=== PATIENT | female | born 1990 | race Caucasian/White ===

== ENCOUNTER 2019-11-23 16:46 | Emergency (ER) | payer OTHER, SELFPAY ==
[2019-11-23 16:52] VITALS: BP 114/75; PULSE 89; RESP 16; TEMP 36.7; O2SAT 100
--- NOTE | 2019-11-23 17:09 | ED.EAR ---
HPI - Ear Problem General Chief complaint: Ear Stated complaint: ear pain Source: patient and RN notes reviewed Mode of arrival: ambulatory Limitations: no limitations History of Present Illness HPI Narrative: Patient is a 29-year-old female who presents complaining of right ear pain x2 days. Patient denies fever, sore throat, cough or congestion. Patient reports taking ibuprofen with moderate relief. MD Complaint: ear pain Location: right ear Related Data Home Medications Medication Instructions Recorded Confirmed pseudoephedrine HCl [Sudafed] 30 mg PO Q4-6H PRN 11/23/19 11/23/19 Allergies Allergy/AdvReac Type Severity Reaction Status Date / Time No Known Allergies Allergy Unknown Verified 11/23/19 17:00 Review of Systems Review of Systems: Narrative: CONSTITUTIONAL: Denies fever, chills, or sweats. EYES: Denies visual changes, redness, or discharge. ENT: Denies rhinorrhea, congestion, sore throat, reports right otalgia. CARDIOVASCULAR: Denies chest pain, palpitations, or edema. RESPIRATORY: Denies cough or dyspnea. GASTROINTESTINAL: Denies abdominal pain, nausea, vomiting, or diarrhea. GENITOURINARY: Denies dysuria or hematuria. SKIN: Denies rash or itching. MUSCULOSKELETAL: Denies back pain, joint pain, or myalgia. NEUROLOGIC: Denies headache, numbness, dizziness, or weakness. PSYCHIATRIC: Denies anxiety or depression. [facility] Past Medical History Medical History (Updated 11/23/19 @ 17:19 by RICHARD Diallo) No pertinent past medical history Surgical History Surgical History (Updated 11/23/19 @ 17:13 by RICHARD Diallo) No pertinent past surgical history Social History Social History (Updated 11/23/19 @ 17:14 by RICHARD Diallo) Smoking status: Never smoker Substance use: never Living arrangements: with family Gender identity (if verbalized by the patient): Female Exam Narrative: Exam Narrative: GENERAL: Well-appearing, well-nourished, and in no acute distress. HEAD: Normocephalic, atraumatic. EYES: EOMI. No redness or drainage. Conjunctiva are normal. ENT: Mucous membranes pink and moist. Nares clear. No rhinorrhea. Left TMs normal, right TM injected, cloudy, bulging bilaterally. Throat normal. Uvula midline. NECK: AROM. Supple. No lymphadenopathy. CHEST: No respiratory distress. Clear to auscultation. HEART: Regular rate and rhythm. No murmur appreciated. Normal peripheral pulses. NEURO: No focal deficits. Alert and oriented x3. Gait steady. PSYCH: Normal affect. No signs of depression or anxiety. Course Vital Signs Vital signs: Vital Signs Temperature 36.7 C 11/23/19 16:52 Pulse Rate 89 11/23/19 16:52 Respiratory Rate 16 11/23/19 16:52 Blood Pressure 114/75 11/23/19 16:52 Pulse Oximetry 100 11/23/19 16:52 Temperature 36.7 C 11/23/19 16:52 Pulse Rate 89 11/23/19 16:52 Respiratory Rate 16 11/23/19 16:52 Blood Pressure 114/75 11/23/19 16:52 Pulse Oximetry 100 11/23/19 16:52 Medical Decision Making MDM Narrative Medical decision making narrative: Patient's most likely diagnosis is right otitis media. Discussed plan of care with patient. Patient is stable for discharge with outpatient follow-up care as needed. Differential Diagnosis Differential Diagnosis: Right otitis media Vital Signs Vital Signs: Vital Signs Temperature 36.7 C 11/23/19 16:52 Pulse Rate 89 11/23/19 16:52 Respiratory Rate 16 11/23/19 16:52 Blood Pressure 114/75 11/23/19 16:52 Pulse Oximetry 100 11/23/19 16:52 Temperature 36.7 C 11/23/19 16:52 Pulse Rate 89 11/23/19 16:52 Respiratory Rate 16 11/23/19 16:52 Blood Pressure 114/75 11/23/19 16:52 Pulse Oximetry 100 11/23/19 16:52 Critical Care Time Critical Care Time Critical Care Time: No Discharge Plan Discharge Clinical Impression: Otitis media Patient Disposition: Home, Self-Care Condition: Stable Instructions: Antibiotic Form
== END 2019-11-23 17:22 | disposition home or self-care (01) ==
PROVIDERS: Emergency Provider Nurse Practitioner
DX: H66.91 Otitis media, unspecified, right ear (principal)
CPT/HCPCS: 99213; G0463

== ENCOUNTER 2020-01-04 11:43 | Emergency (ER) | payer OTHER, SELFPAY ==
[2020-01-04 11:50] VITALS: BP 119/72; PULSE 86; RESP 16; TEMP 36.9; O2SAT 99
--- NOTE | 2020-01-04 12:01 | ED.GENADULT ---
HPI - General Adult General Chief complaint: Upper Respiratory Infection Stated complaint: cough/fever/body aches History of Present Illness HPI narrative: Patient is a 29-year-old female presents to urgent care via POV for evaluation of a sore throat that began approximately 3 days ago. Additionally, she reports dry cough, low-grade fever, and myalgias. She reports that her temperatures have been running in the low 100s . Current pain is 5 out of 10 on a pain scale. She reports her pain is intermittent and sharp in nature. Tylenol and cough drops improve throat pain. Nothing worsens throat pain. Pertinent negatives: chills, poor p.o. intake, flu-like symptoms, ear pain/drainage, sinus trouble, headache, nasal congestion, rhinorrhea, lymphadenopathy, dizziness, LOC, inability to swallow, drooling, hoarseness, halitosis, abdominal pain, nausea, vomiting, diarrhea, cyanosis, hemoptysis, wheezing, sob, chest pain, heart murmurs, and heart palpations. Related Data Allergies Allergy/AdvReac Type Severity Reaction Status Date / Time No Known Allergies Allergy Unknown Verified 01/04/20 11:56 Review of Systems Review of Systems: Narrative: GENERAL: Well-appearing, well-nourished, and in no acute distress. HEAD: Normocephalic, atraumatic. No sinus tenderness or facial swelling appreciated. EYES: PERRLA and EOMI. No evidence of erythema, swelling, or drainage. ENT: Bilateral external ears and ear canals normal. Bilateral TMs are normal.No TM perforation. Nares clear, no rhinorrhea or epistaxis. Bilateral turbinates without erythema/ swelling. Mucous membranes moist and pink. Uvula is midline without erythema and swelling. Bilateral tonsils absent. Mild erythema appreciated to posterior pharynx. No evidence of petechial rash, cobblestoning, lesions, ulcers, swelling, exudates, peritonsillar abscess, tenting, or drooling. Breath odor and voice normal. NECK: Supple. No Lymphadenopathy or nuchal rigidity appreciated. CHEST: Bilateral lung rebollar are clear to auscultation. No respiratory distress. No evidence of cough or pleuritic cp upon examination. HEART: Regular rate and rhythm. No murmur, gallop, or rub heard. EXTREMITIES: Normal range of motion. No edema. SKIN: Warm, dry, no rash. NEURO: No focal deficits. Alert and oriented x3. . PMFSH Past Medical History Medical History No pertinent past medical history Surgical History Surgical History No pertinent past surgical history Social History Social History Smoking status: Never smoker Substance use: never Gender identity (if verbalized by the patient): Female Comments I have reviewed and agree with the patient's past medical, surgical, social, and family hx as documented by the RN. There is no relevant family history pertinent to the presenting complaint. Exam Narrative: Exam Narrative: Denies history of COPD, bronchitis, asthma, and pneumonia. Denies current/past tobacco use. Pertinent negatives: fever, sweats, chills, change in appetite, fatigue, skin color changes, headache, nasal congestion/discharge, dizziness, lymphadenopathy, sinus problems, ear pain/drainage, chest pain, heart murmurs, heart palpitations, shortness of breath, wheezing, cyanosis, hemoptysis, hoarseness, orthopnea, pleuritic pain, nausea, vomiting, diarrhea, and myalgias. GENERAL: Well-appearing, well-nourished, and in no acute distress. HEAD: Normocephalic, atraumatic. No sinus tenderness or facial swelling appreciated. EYES: PERRLA and EOMI. No evidence of erythema, swelling, or drainage. ENT: Bilateral external ears and ear canals normal. Bilateral TMs are normal.No TM perforation. Nares clear, no rhinorrhea or epistaxis. Bilateral turbinates without erythema/ swelling. Mucous membranes moist and pink. Uvula is
== END 2020-01-04 12:20 | disposition home or self-care (01) ==
PROVIDERS: Emergency Provider Nurse Practitioner Family
DX: J06.9 Acute upper respiratory infection, unspecified (principal)
CPT/HCPCS: 87081; 87804; 87880; 99213; G0463

== ENCOUNTER 2020-10-20 16:27 | Outpatient (RCR) | payer OTHER, SELFPAY ==
[2020-10-13 14:33] VITALS: BP 105/62; PULSE 65
[2020-10-20 17:12] VITALS: BP 119/63; PULSE 68
== END 2020-10-31 10:27 | disposition home or self-care (01) ==
LOC: ANHOBOP 16:27
PROVIDERS: Visit Provider Obstetrics & Gynecology
DX: O24.419 Gestational diabetes mellitus in pregnancy, unspecified control (principal); Z3A.36 36 weeks gestation of pregnancy; Z3A.37 37 weeks gestation of pregnancy
CPT/HCPCS: 59025

== ENCOUNTER 2020-10-24 10:19 | Observation (INO) | payer OTHER, SELFPAY ==
[2020-10-24] VITALS (9 sets, daily range): BP systolic 116–122; BP diastolic 65–72; PULSE 67–109; TEMP 36.6
--- NOTE | 2020-10-24 10:19 | OBADM ---
This patient, Urvashi Arriaga, admitted to the OB room Labor/Delivery/Recovery 118 for observation. Patient/family oriented to hospital policies and general routines including ID bracelet, bed and alarms, visiting hours, pain management, procedures, bathroom and other care routines, personal items, smoking policy, room service/diet, and visiting hours. Patient/Family are encouraged to report perceived risks to care and to ask questions if they do not understand what they are told or what they should do.
[2020-10-24] MEDS: TERBUTALINE SULFATE 1 MG/ML VIAL 0.25 MG SUB-Q (13:59)
--- NOTE | 2020-10-24 15:00 | PC.NURSE ---
Patient states she is only feeling occasional contractions that are mild. Patient would like to be discharged to home. Will continue to monitor patient and discuss plan of care with Dr. Ramos.
--- NOTE | 2020-10-24 15:43 | PC.NURSE ---
Updated Dr. Ramos on patient contractions. Patient states she feels mild contractions, but is comfortable and would like to go home. Order for discharge given. FHT category 1. VSS.
--- NOTE | 2020-11-20 18:23 | PM.OBTRLD ---
OB - Triage/Final Diagnosis Visit Information Comments/Additional reasons for admission: I have assessed the risk for this patient, Urvashi Arriaga, and determined that she would benefit from observation care. Final Diagnosis (1) False labor: Code(s): O47.9 - False labor, unspecified Status: Acute
== END 2020-10-24 15:58 | disposition home or self-care (01) ==
PROVIDERS: Admitting Provider Obstetrics & Gynecology; Visit Provider Obstetrics & Gynecology
DX: O47.9 False labor, unspecified (principal); Z3A.00 Weeks of gestation of pregnancy not specified
CPT/HCPCS: 96372; G0378; G0379; J3105

== ENCOUNTER 2020-10-29 14:50 | Inpatient (IN) | payer OTHER, SELFPAY ==
--- NOTE | 2020-10-08 14:05 | PC.NURSE ---
VERIFIED WITH OR SCHEDULE AND PATIENT--C/S WITH TUBAL LIGATION ON 11/01/20 AT 0730 PATIENT GIVEN REQUISITION FOR PRE-OP LAB DRAW ON 10/31/20
[2020-10-29] VITALS (26 sets, daily range): BP systolic 96–121; BP diastolic 54–87; PULSE 53–90; RESP 16–18; TEMP 36.4–36.9; O2SAT 98–100; BMI 27.5
[2020-10-29] MEDS: fentaNYL CITRATE INJ (*CRX) 100 MCG/2 ML VIAL 50 MCG IV PUSH (15:34)
[2020-10-29] MEDS: LACTATED RINGERS 1,000 ML 999 ML IV CONT (15:34)
--- NOTE | 2020-10-29 15:49 | OBADM ---
This patient, Urvashi Arriaga, admitted to the OB room Labor/Delivery/Recovery 120 for observation. Patient/family oriented to hospital policies and general routines including ID bracelet, bed and alarms, visiting hours, pain management, procedures, bathroom and other care routines, personal items, smoking policy, room service/diet, call light, and visiting hours. Patient/Family are encouraged to report perceived risks to care and to ask questions if they do not understand what they are told or what they should do.
--- NOTE | 2020-10-29 16:37 | WPDANESEPP ---
Anes - Eval Pre Procedure Procedure: Operation Date: 11/01/20 07:30 Proposed Procedures p Repeat Section with Bilateral Tubal Ligation - Ck Ramos MD Date/Time: 10/29/20 16:37 Pre Op Diagnosis: Contractions Patient Data Age: 30 Gender: F Height: 1.57 m Weight: 68.3 kg Last Vital Signs Pulse 90 10/29/20 15:03 BP 121/80 10/29/20 15:03 Allergies Allergy/AdvReac Type Severity Reaction Status Date / Time No Known Allergies Allergy Unknown Verified 10/08/20 13:47 Home Medications Medication Instructions Recorded Confirmed Type ferrous sulfate 140 mg PO DAILY 10/08/20 10/08/20 History prenat.vits,jack,[id number] 1 tablet PO DAILY 10/08/20 10/08/20 History Patient hx anesthesia problems: none Family hx anesthesia problems: none PMFSH Past Medical History Medical History (Updated 01/05/20 @ 00:00 by Destinee Adair) No pertinent past medical history Surgical History Surgical History No pertinent past surgical history Family History Family History (Updated 10/08/20 @ 13:49 by Laura Marie RN) Other Unknown family medical history Social History Social History Smoking status: Never smoker Substance use: never Gender identity (if verbalized by the patient): Female Spiritual care concerns: No Exam Day of Procedure 10/29/20 16:37 Patient weight: overweight Heart: regular rate and rhythm Lungs: clear to auscultation Airway: Mallampati scale class II Neurological: alert and oriented
--- NOTE | 2020-10-29 16:52 | PM.IMHP ---
H&P: HPI History of Present Illness Date/Time: 10/29/20 16:52 Chief Complaint: Painful contractions Narrative: Urvashi Arriaga is a 30 year old female, multiparous, at term who presents in labor. She has a history of previous delivery. She has undesired fertility. We have agreed to perform repeat delivery with bilateral tubal ligation. She denies any loss of fluid. She reports painful contractions and vaginal bleeding. She denies any nausea, vomiting, fever, chills. She denies any chest pain or shortness of breath. Review of Systems Constitutional: Constitutional: Reports no additional constitutional complaints, Denies fatigue, Denies headache(s), Denies lethargy and Denies weakness Eyes: Eyes: Reports no additional eye complaints, Denies blurry vision and Denies photophobia ENT: Reports as per HPI, Denies headache(s) and Denies neck pain Cardiovascular: Cardiovascular: Denies chest pain, Denies diaphoresis, Denies leg edema, Denies palpitations and Denies dyspnea Respiratory: Respiratory: Denies hemoptysis, Denies dyspnea and Denies wheezing Gastrointestinal: Gastrointestinal: Denies abdominal pain, Denies melena, Denies bloating, Denies hematochezia, Denies nausea and Denies vomiting Genitourinary: Genitourinary: Reports no additional female genitourinary complaints Musculoskeletal: Musculoskeletal: Denies joint swelling, Denies neck pain, Denies numbness and Denies stiffness Neurologic: Denies Abnormal speech present, Denies confusion, Denies headache(s), Denies numbness and Denies weakness Psychiatric: Psychiatric: Denies anxiety, Denies confusion, Denies depression, Denies homicidal ideation and Denies suicidal ideation Endocrine: Endocrine: Denies fatigue and Denies palpitations Allergic/Immunologic: Allergic/Immunologic: Denies wheezing PMFSH Past Medical History Medical History (Updated 10/29/20 @ 16:57 by Ck Ramos MD) No pertinent past medical history Surgical History Surgical History (Updated 10/29/20 @ 16:57 by Ck Ramos MD) No pertinent past surgical history Family History Family History (Updated 10/08/20 @ 13:49 by Laura Marie RN) Other Unknown family medical history Social History Social History Smoking status: Never smoker Substance use: never Gender identity (if verbalized by the patient): Female Spiritual care concerns: No Meds Home Medications and Allergies Home Medications Medication Instructions Recorded Confirmed Type ferrous sulfate 140 mg PO DAILY 10/08/20 10/08/20 History prenat.vits,jack,[id number] 1 tablet PO DAILY 10/08/20 10/08/20 History Allergies Allergy/AdvReac Type Severity Reaction Status Date / Time No Known Allergies Allergy Unknown Verified 10/08/20 13:47 Vital Signs Vital Signs - 24 hr 10/29/20 15:03 Pulse Rate 90 Blood Pressure 121/80 Exam Const: General: healthy appearing, comfortable and no acute distress; No confusion Orientation/consciousness: No confusion Eyes: Direct Ophthalmoscopy: No photophobia Resp: Auscultation: clear to auscultation bilaterally, no rales, no rhonchi and no wheezes Cardio: Rate: regular rate Heart sounds: no click, no murmurs and no rubs GI: Inspection: non-distended GI Palp: No abdominal tenderness Auscultation: normal bowel sounds Neuro: General: No confusion Speech: No Abnormal speech present Extrem: General: normal to inspection, no pedal edema and no calf tenderness Assessment and Plan Assessment and plan (1) Term : Code(s): Z34.90 - Encounter for supervision of normal , unspecified, unspecified trimester Status: Acute (2) Previous section: Code(s): Z98.891 - History of uterine scar from previous surgery Status: Acute (3) Encounter for female sterilization procedure: Code(s): Z30.2 - Encounter for sterilization
[2020-10-29 16:53] LABS: Basophils Percent Auto 0.3 % (0.2-1.2); Eosinophils Absolute Auto 0.1 K/mm3 (0-0.3); Eosinophils Percent Auto 0.6 % (0-4.4); Hematocrit 38.7 % (37.0-47.0); Immature Granulocyte Percent A 0.9 % (0-0.5); Lymphocytes Absolute Auto 2.29 K/mm3 (0.9-3.2); Lymphocytes Percent Auto 19.8 % (18.3-44.2); Mean Corpuscular HGB Conc 33.6 g/dl (32-36); Mean Corpuscular Hemoglobin 29.5 pg (26-34); Mean Corpuscular Volume 87.8 fl (80-100); Mean Platelet Volume 10.2 fl (7.4-10.4); Monocytes Absolute Auto 0.5 K/mm3 (0.1-0.6); Monocytes Percent Auto 4.4 % (2.6-8.5); Neutrophils Absolute Auto 8.6 K/mm3 (1.3-6.7); Platelet Count Result 322 k/mm3 (150-375); Red Blood Count 4.41 M/mm3 (4.2-5.4); Red Cell Distribution Width 15.1 % (11.5-14.5); White Blood Count 11.6 K/mm3 (4.5-10.0)
--- NOTE | 2020-10-29 17:11 | WPDANESEFPP ---
Anes - Eval Final PreProcedure Day of Procedure 10/29/20 17:11 Patient weight: overweight Heart: regular rate and rhythm Lungs: clear to auscultation and normal air movement Airway: Mallampati scale class II Neurological: alert and oriented Last oral intake: >/= 8 hours ASA classification: II Emergent: no Anesthetic plan: proceed Anesthesia type and monitoring: regional spinal and standard monitoring Informed Consent: The patient's anesthetic plan and its attendant risks and benefits were discussed with the patient/family/POA. Questions were solicited and answers provided to the satisfaction of the patient/family/POA.
--- NOTE | 2020-10-29 18:12 | PM.PROC ---
Procedure Note - Detailed Date of procedure: 10/29/20 Pre-op diagnosis: Contractions Unwanted fertility Post-op diagnosis: same Procedure performed: Repeat low-transverse delivery, tubal ligation Description of procedure: The patient was taken the operating room. She was prepped and draped in the dorsal supine position with leftward tilt after induction of spinal anesthetic. When anesthesia was found to be adequate a low-transverse skin incision was made and carried down to the level the fascia with the knife. The fascial incision was made at the midline with a scalpel. The fascial incision was extended laterally with Nelson scissors. The fascia was tented upward superior and inferior with Joanna clamps. The rectus muscles were dissected off bluntly. The rectus muscles at the midline. The preperitoneal fat was dissected bluntly at the superior aspect of the separate the rectus muscles. The peritoneal cavity was entered bluntly in the same area. The peritoneal incision was extended superior and inferior with good position of bladder. Bladder blade was inserted. A low-transverse incision was made on the uterus with the scalpel. It was carried down the level of the amniotic cavity with a knife. The amniotic cavity bluntly. The uterine incision was made laterally with blunt traction. The infant was delivered. The cord was clamped and cut. The infant was handed off to waiting pediatric staff. Cord bloods were obtained. The placenta was removed manually. The uterus was exteriorized. Uterus cleared of all clots and debris. Uterus closed in 0 Vicryl in a running locked fashion. An imbricating layer of 0 Vicryl was also placed on the to bolster the closure. Fallopian tube was grasped in the ampullary region with a Bryant. It was raised away from the accompanying vein. A window was created in the broad ligament in this area of the tube. 0 Vicryl was used to ligate the proximal distal ends of the skeletonize region of the tube. The segment of the tube was resected with scissors. The cut surfaces were cauterized. Bleeding occurred on both distal tube and. The remaining distal tube in were clamped across the paratubal tissue. The pedicle was then ligated with 2 sutures of 0 Vicryl. The pedicle was transected and removed. On the contralateral side the procedure was performed identically. The uterus was returned to the abdomen. The gutters were cleared of all clots and debris. The fascia was closed 0 Vicryl in a running fashion. Subcutaneous tissue was irrigated and bleeding areas were cauterized. The skin was closed with subcuticular absorbable otis. The incision was covered with derma cuello. The patient tolerated the procedure well. She was taken recovery room stable condition. Sponge, lap, needle counts were correct x2. Anesthesia: spinal Surgeon: Ck Ramos MD Estimated blood loss (mL): 210 Drains: No Packing: No Pathology: none sent Complications: No immediate complications Condition: stable Disposition: floor Findings: Normal maternal anatomy. Average size infant with normal Apgars.
--- NOTE | 2020-10-29 18:29 | WPDANESEFPP ---
Anes - Eval Final PreProcedure Day of Procedure 10/29/20 18:29 Patient weight: overweight Heart: regular rate and rhythm Lungs: clear to auscultation and normal air movement Airway: Mallampati scale class II Neurological: alert and oriented Last oral intake: >/= 8 hours ASA classification: II Emergent: no Anesthetic plan: proceed Anesthesia type and monitoring: regional spinal and standard monitoring Informed Consent: The patient's anesthetic plan and its attendant risks and benefits were discussed with the patient/family/POA. Questions were solicited and answers provided to the satisfaction of the patient/family/POA.
[2020-10-29] MEDS: OXYTOCIN 30 UNITS/NS 500 ML 30 UNITS/500 ML BAG 125 UNITS IV CONT (19:15)
--- NOTE | 2020-10-29 20:42 | OBPPTRN ---
Patient transferred to post room #284 via stretcher. Support person present. Oriented to unit, room, information board, rooming in, admission packet and security measures. Patient verbalizes understanding.
[2020-10-29] MEDS: KETOROLAC 30 MG/ML VIAL (*BKC) IV PUSH (21:42)
[2020-10-30] VITALS: BP 100/63; PULSE 60; RESP 16; TEMP 37; O2SAT 98
[2020-10-30] MEDS: DEXTROSE 5%/0.45% SOD CHL 1,000 ML 125 ML IV CONT (00:45)
[2020-10-30 04:00] VITALS: BP 100/56; PULSE 63; RESP 16; TEMP 36.8; O2SAT 98
[2020-10-30 05:01] LABS: Basophils Percent Auto 0.3 % (0.2-1.2); Eosinophils Absolute Auto 0.1 K/mm3 (0-0.3); Eosinophils Percent Auto 0.5 % (0-4.4); Hematocrit 31.4 % (37.0-47.0); Hemoglobin 10.4 g/dL (12.0-15.0); Immature Granulocyte Percent A 0.8 % (0-0.5); Lymphocytes Absolute Auto 2.18 K/mm3 (0.9-3.2); Lymphocytes Percent Auto 16.6 % (18.3-44.2); Mean Corpuscular HGB Conc 33.1 g/dl (32-36); Mean Corpuscular Hemoglobin 29.6 pg (26-34); Mean Corpuscular Volume 89.5 fl (80-100); Mean Platelet Volume 10.3 fl (7.4-10.4); Monocytes Absolute Auto 0.7 K/mm3 (0.1-0.6); Monocytes Percent Auto 5.6 % (2.6-8.5); Neutrophils Percent Auto 76.2 % (45.5-73.1); Platelet Count Result 243 k/mm3 (150-375); Red Blood Count 3.51 M/mm3 (4.2-5.4); Red Cell Distribution Width 15.4 % (11.5-14.5); White Blood Count 13.1 K/mm3 (4.5-10.0)
--- NOTE | 2020-10-30 07:16 | WPDANLDPN2 ---
Anes-Prog Note L&D Date/Time: 10/30/20 07:16 Comfortable throughout: section Neuraxial method: spinal Epidural/Spinal procedure site: clean & non-tender Neuro status: Neuro function grossly intact. Cardiovascular status: normal Respiratory status: normal Airway patency: baseline Mental status: baseline Post-Op hydration status: normal Vital Signs: Last Vital Signs Temp 36.8 C 10/30/20 04:00 Pulse 63 10/30/20 04:00 Resp 16 10/30/20 04:00 BP 100/56 L 10/30/20 04:00 Pulse Ox 98 10/30/20 04:00 Pain score (VAS): 1 I/O: Intake & Output 10/29/20 10/29/20 10/30/20 15:59 23:59 07:59 Intake Total 1000 Output Total 633 600 Balance -633 400 Post-procedural complaints: none Patient feedback: Patient satisfied with anesthetic care.
--- NOTE | 2020-10-30 07:16 | WPDANLDNPN2 ---
Anes-Prog Note L&D-Neuraxial Date/Time: 10/30/20 07:16 Neuraxial medications: intrathecal PF morphine Opiod-related complaints: none Patient feedback: Patient satisfied with post-operative pain management.
[2020-10-30] MEDS: MULTIVIT/MIN/PREN/FOL AC/IRON TABLET 1 TAB PO (08:39)
[2020-10-30] MEDS: IBUPROFEN 600 MG TABLET PO ×3 (08:39→23:58)
[2020-10-30] MEDS: DOCUSATE SODIUM 100 MG CAPSULE PO ×2 (08:39→17:27)
[2020-10-30 08:50] VITALS: BP 101/64; PULSE 72; RESP 18; TEMP 36.1
--- NOTE | 2020-10-30 10:55 | PM.OBPNVD ---
OB - PN: Subj Subjective Date/time seen: 10/30/20 10:55 Patient comments: no complaints, pain well controlled, tolerating diet and flatus present [place] baby status: doing well OB - PN: Obj Data Labs CBC & Chem 7: 10/30/20 04:05 Labs: Laboratory Results - last 24 hr 10/29/20 10/29/20 10/30/20 16:32 16:32 04:05 WBC 11.6 H 13.1 H RBC 4.41 3.51 L Hgb 13.0 10.4 L Hct 38.7 31.4 L MCV 87.8 89.5 MCH 29.5 29.6 MCHC 33.6 33.1 RDW 15.1 H 15.4 H Plt Count 322 243 MPV 10.2 10.3 Immature Gran % (Auto) 0.9 H 0.8 H Neut % (Auto) 74.0 H 76.2 H Lymph % (Auto) 19.8 16.6 L [place] % (Auto) 4.4 5.6 Eos % (Auto) 0.6 0.5 Baso % (Auto) 0.3 0.3 Lymph # (Auto) 2.29 2.18 [place] # (Auto) 0.5 0.7 H Eos # (Auto) 0.1 0.1 Baso # (Auto) 0.0 0.0 Abs Immat Gran (auto) 0.10 H 0.10 H Absolute Neuts (auto) 8.6 H 10.0 H Absolute Nucleated RBC 0.0 0.0 Nucleated RBC % 0.0 0.0 Blood Type O Positive Antibody Screen Negative OB - PN A/P Plan day: 1 Plan: routine care Time Spent With Patient Time: Total time spent is greater than 50% in coordination of care (as documented) at patient's floor/unit and/or counseling patient: Time with patient: less than 15 minutes Review of Systems Review of Systems: All systems reviewed & are unremarkable except as noted in HPI and below Exam Narrative: Exam Narrative: Fundus firm. Vaginal flow controlled. Incision dry and intact. Negative homans. No redness, warmth, or pain of lower ext. Const: General: comfortable Chest: Breast/axilla inspection: normal inspection of the breasts Resp: Effort & Inspection: normal respiratory effort Auscultation: clear to auscultation bilaterally Cardio: Rate: regular rate GI: GI Palp: Yes Soft to palpation Psych: Appearance: grossly normal Affect: normal affect Attitude: cooperative Thought content: Yes Normal thought content present Judgement: Good judgement present (Psych)
[2020-10-30 12:50] VITALS: BP 94/62; PULSE 64; RESP 16; TEMP 35.9
[2020-10-30] MEDS: ACETAMINOPHEN 325 MG TABLET 650 MG PO ×2 (12:57→19:46)
[2020-10-30 17:00] VITALS: BP 90/56; PULSE 70; RESP 18; TEMP 36.1
[2020-10-30 20:00] VITALS: BP 98/51; PULSE 63; RESP 16; TEMP 36.4; O2SAT 99
[2020-10-31 07:10] LABS: Rapid Plasma Reagin Non-Reactive (NonReactive)
[2020-10-31 07:35] VITALS: BP 98/61; PULSE 60; RESP 18; TEMP 36.2; O2SAT 98
--- NOTE | 2020-10-31 08:06 | P.PNOB_ITS ---
OB - PN: Subj Subjective Date/time seen: 10/31/20 08:06 Patient comments: no complaints, pain well controlled, tolerating diet and flatus present [place] baby status: doing well OB - PN: Obj Data Labs CBC & Chem 7: 10/30/20 04:05 Labs: Laboratory Results - last 24 hr 10/29/20 16:32 RPR Non-reactive OB - PN A/P Plan day: 2 Plan: routine care and discharge home Time Spent With Patient Time: Total time spent is greater than 50% in coordination of care (as documented) at patient's floor/unit and/or counseling patient: Time with patient: less than 15 minutes Review of Systems Review of Systems: All systems reviewed & are unremarkable except as noted in HPI and below Exam Narrative: Exam Narrative: Fundus firm. Vaginal flow controlled. Incision dry and intact. Negative homans. No redness, warmth, or pain of lower ext. Const: General: comfortable Chest: Breast/axilla inspection: normal inspection of the breasts Resp: Effort & Inspection: normal respiratory effort Auscultation: clear to auscultation bilaterally Cardio: Rate: regular rate GI: GI Palp: Yes Soft to palpation Psych: Appearance: grossly normal Affect: normal affect Attitude: cooperative Thought content: Yes Normal thought content present Judgement: Good judgement present (Psych)
[2020-10-31] MEDS: IBUPROFEN 600 MG TABLET PO ×2 (08:26→14:55)
[2020-10-31] MEDS: DOCUSATE SODIUM 100 MG CAPSULE PO (08:27)
[2020-10-31 15:30] VITALS: BP 111/63; PULSE 77; RESP 16; TEMP 36.4
[2020-10-31] MEDS: ACETAMINOPHEN 325 MG TABLET 650 MG PO (19:32)
[2020-10-31 19:33] VITALS: BP 116/73; PULSE 69; RESP 16; TEMP 36.6; O2SAT 99
[2020-11-01] MEDS: IBUPROFEN 600 MG TABLET PO ×2 (05:00→10:37)
[2020-11-01] MEDS: ACETAMINOPHEN 325 MG TABLET 650 MG PO ×2 (05:00→10:36)
[2020-11-01 07:55] VITALS: BP 111/76; PULSE 60; RESP 18; TEMP 36.9; O2SAT 100
--- NOTE | 2020-11-01 07:56 | PM.OBPNVD ---
OB - PN: Subj Subjective Date/time seen: 11/01/20 07:56 Patient comments: no complaints, pain well controlled, incisional pain, tolerating diet and flatus present OB - PN: Obj Data Labs CBC & Chem 7: 10/30/20 04:05 OB - PN A/P Plan day: 3 Plan: routine care Comments: POD#2 LTCS - no problems, to d/c Time Spent With Patient Time: Total time spent is greater than 50% in coordination of care (as documented) at patient's floor/unit and/or counseling patient: Exam Const: General: comfortable, no acute distress and alert Resp: Effort & Inspection: normal respiratory effort Auscultation: no crackles, no rales and no rhonchi Cardio: Rate: regular rate Heart sounds: no click, no murmurs and no rubs GI: Inspection: non-distended GI Palp: No Tenderness to palpation present (GI) Auscultation: normal bowel sounds Other: Incision - CDI Extrem: General: normal to inspection, no pedal edema and no calf tenderness
--- NOTE | 2020-11-01 07:57 | PM.OBDSVD ---
DS: Admitting Diagnosis Admitting Diagnosis Admitting Diagnosis: labor, term , previous c/s, sterilization DS: Discharge Diagnosis Discharge Diagnosis (1) Encounter for female sterilization procedure: Code(s): Z30.2 - Encounter for sterilization Status: Acute (2) Previous section: Code(s): Z98.891 - History of uterine scar from previous surgery Status: Acute OB - DS: Summary OB Procedures : None OB Procedures Intrapartum: and Tubal ligation OB Procedures: : None Peripartum Data Delivery Method: Section Procedures: Procedures Operation Date: 10/29/20 17:00 Actual Procedures Side Surgeon p Repeat Section with Bilateral Tubal Ligation Ck Ramos MD Time Spent with Patient Time attestation: Total time spent providing and/or coordinating discharge services: DS: Data Data Completed and Pending Pending studies at discharge: Pending at discharge 10/29/20 17:50 Surgical [PTH] Routine Discharge Plan Discharge Attending physician on discharge: Ck Ramos Discharging Clinician: Ck Ramos Patient Disposition: Home, Self-Care Activity: pelvic rest Diet: as tolerated Wound Care Instructions: follow printed instructions Patient Instructions: Antibiotic Form Stand Alone Forms: General Discharge Information Follow-up/Referrals: Ck Ramos MD [Physician] - Discharge Medications: New hydrocodone-acetaminophen 5-325 mg tablet 1 - 2 tablet PO Q4H PRN (Reason: pain) Qty: 25 RF: 0 Continued prenat.vits,jack,gxl-atcb-rluuc Tablet 1 tablet PO DAILY RF: 0 ferrous sulfate 140 mg (45 mg iron) Tablet Extended Release 140 mg PO DAILY RF: 0 Date of admission: 10/29/20 14:50 Primary Care Provider: PHYSICIAN,CYBER FORENSIC SPECIALIST Admitting Provider: Ck Ramos Attending physician on admission: Ck Ramos Condition: Stable
[2020-11-01] MEDS: MULTIVIT/MIN/PREN/FOL AC/IRON TABLET 1 TAB PO (10:27)
[2020-11-01] MEDS: DOCUSATE SODIUM 100 MG CAPSULE PO (10:28)
[2020-11-02 07:49] VITALS: BP 115/61; PULSE 81; RESP 16; TEMP 37; O2SAT 100
== END 2020-11-01 11:57 | disposition home or self-care (01) | DRG 785 ==
LOC: ANHLDR 17:46 → ANHOB2 21:02
PROVIDERS: Admitting Provider Obstetrics & Gynecology; Visit Provider Obstetrics & Gynecology
DX: O34.211 Maternal care for low transverse scar from previous cesarean delivery (principal); Z37.0 Single live birth; Z3A.38 38 weeks gestation of pregnancy; O24.429 Gestational diabetes mellitus in childbirth, unspecified control; Z30.2 Encounter for sterilization
CPT/HCPCS: 36415; 85025; 86592; 86850; 86900; 86901; 88302; A9270; J0131; J1885; J2274; J2405; J2590; J3010; J7120

== ENCOUNTER 2021-04-27 12:33 | Emergency (ER) | payer OTHER, SELFPAY ==
[2021-04-27 13:08] VITALS: BP 128/74; PULSE 92; RESP 16; TEMP 36.4; O2SAT 100
--- NOTE | 2021-04-27 13:40 | ED.EAR ---
HPI - Ear Problem General Chief complaint: Ear Stated complaint: ear pain Source: patient and RN notes reviewed Limitations: no limitations History of Present Illness HPI Narrative: The patient, previously healthy non-smoker/occasional drinker, presents with 1/2-week history of right ear discomfort. No fever, cough, recent swimming, discharge, decreased acuity, tinnitus. Symptoms are mild, not worse with palpation; there was some scratchy throat and congestion. Related Data Home Medications Medication Instructions Recorded Confirmed ferrous sulfate 140 mg PO DAILY 10/08/20 10/08/20 prenat.vits,jack,edb-ebce-eojks 1 tablet PO DAILY 10/08/20 10/08/20 Allergies Allergy/AdvReac Type Severity Reaction Status Date / Time No Known Allergies Allergy Unknown Verified 10/08/20 13:47 Review of Systems Review of Systems: Narrative: General/Constitutional: No weight loss,fever Eyes: N0: Redness,discharge Ears/Nose/Throat: No: Epistaxis,ear discharge Respiratory: Denies: Hemoptysis Gastrointestinal: No Vomiting, Bleeding-rectal Skin: No Lumps, eruption Neurologic: No Focal Weakness,Sz Hematologic: Denies: Petechiae/Purpura Psychiatric: No: Suicida ideationl All Other Systems: Reviewed and Negative PMFSH Past Medical History Medical History (Updated 04/27/21 @ 13:43 by Mark Sesay MD) No pertinent past medical history Surgical History Surgical History (Updated 10/29/20 @ 16:57 by Ck Ramos MD) No pertinent past surgical history Family History Family History (Updated 10/08/20 @ 13:49 by Laura Marie, ARACELI) Other Unknown family medical history Social History Social History Smoking status: Never smoker Substance use: never Gender identity (if verbalized by the patient): Female Spiritual care concerns: No Comments At time of signature, agree with nursing past medical, surgical, social and family history. There is no relevant family history pertinent to the presenting complaint Exam Narrative: Exam Narrative: General Appearance: Well appearing, Well nourished EYE: PERRLA, Conjunctiva clear Ears: Auditory canal normal, right TM dull/opacified with AF level, left TM TM normal Nose: Rhinorrhea, Mucousal erythema Mouth/Throat: MM moist, Uvula midline, Pharyngeal erythema Neck: Supple, No adenopathy Respiratory: No respiratory distress, Breath sounds equal, Clear to auscultation Cardiovascular: RRR, No JVD Musculoskeletal: Non tender, Normal strength Skin: Warm, Dry Neurological: A&O x3, CN II-XII intact Psychiatric: Normal mood, Normal affect Course Vital Signs Vital signs: Vital Signs Temperature 97.6 F 04/27/21 13:08 Pulse Rate 92 04/27/21 13:08 Respiratory Rate 16 04/27/21 13:08 Blood Pressure 128/74 04/27/21 13:08 Pulse Oximetry 100 04/27/21 13:08 Temperature 97.6 F 04/27/21 13:08 Pulse Rate 92 04/27/21 13:08 Respiratory Rate 16 04/27/21 13:08 Blood Pressure 128/74 04/27/21 13:08 Pulse Oximetry 100 04/27/21 13:08 Medical Decision Making Vital Signs Vital Signs: Vital Signs Temperature 97.6 F 04/27/21 13:08 Pulse Rate 92 04/27/21 13:08 Respiratory Rate 16 04/27/21 13:08 Blood Pressure 128/74 04/27/21 13:08 Pulse Oximetry 100 04/27/21 13:08 Temperature 97.6 F 04/27/21 13:08 Pulse Rate 92 04/27/21 13:08 Respiratory Rate 16 04/27/21 13:08 Blood Pressure 128/74 04/27/21 13:08 Pulse Oximetry 100 04/27/21 13:08 Discharge Plan Discharge Clinical Impression: Acute serous otitis media of right ear Qualifiers: Recurrence: not specified as recurrent Qualified Code(s): H65.01 - Acute serous otitis media, right ear Patient Disposition: Home, Self-Care Condition: Stable Instructions: Fluid In The Ear (Serous Otitis Media) (ED) Additional Instructions: You may also try antiallergy strategy with OTC preps like Flonase
== END 2021-04-27 13:55 | disposition home or self-care (01) ==
PROVIDERS: Emergency Provider Emergency Medicine
DX: H65.01 Acute serous otitis media, right ear (principal)
CPT/HCPCS: 99213; G0463

== ENCOUNTER 2021-11-20 11:16 | Emergency (ER) | payer OTHER, SELFPAY ==
--- NOTE | 2021-11-20 11:20 | ED.URI ---
HPI - URI/Sore Throat General Chief Complaint: Upper Respiratory Infection Stated Complaint: Sore throat Source: patient and RN notes reviewed Mode of arrival: ambulatory Limitations: no limitations History of Present Illness HPI Narrative: 31-year-old female presents the concern for sore throat that started this morning. She reports some body aches last night. She reports postnasal drainage. She denies cough, nasal congestion, rhinorrhea, headache, vomiting, diarrhea, shortness of breath. Denies any ibul-prb-[id number] intervention. MD elicited complaint: sore throat Related Data Allergies Allergy/AdvReac Type Severity Reaction Status Date / Time No Known Allergies Allergy Unknown Verified 11/20/21 11:37 Review of Systems Review of Systems: CONSTITUTIONAL: Denies malaise, chills, sweats, or fever. EYES: Denies visual changes, redness, or discharge. ENT: Reports postnasal drainage, sore throat. Denies rhinorrhea, congestion, sinus pain, otalgia CARDIOVASCULAR: Denies chest pain, palpitations, or edema. RESPIRATORY: Denies cough. Denies dyspnea. GASTROINTESTINAL: Denies abdominal pain, nausea, vomiting, diarrhea SKIN: Denies rash or itching. MUSCULOSKELETAL: Reports myalgia. NEUROLOGIC: Denies headache. All systems reviewed & are unremarkable except as noted in HPI and below PMFSH Past Medical History Medical History (Updated 11/20/21 @ 12:09 by Keyonna Morton NP) No pertinent past medical history Surgical History Surgical History (Updated 10/29/20 @ 16:57 by Ck Ramos MD) No pertinent past surgical history Family History Family History (Updated 10/08/20 @ 13:49 by Laura Marie RN) Other Unknown family medical history Social History Social History Smoking status: Never smoker Substance use: never Gender identity (if verbalized by the patient): Female Spiritual care concerns: No Comments At time of signature, agree with nursing past medical, surgical, social and family history. There is no relevant family history pertinent to the presenting complaint Exam Narrative: GENERAL: Well-appearing, well-nourished, and in no acute distress. HEAD: Normocephalic EYES: PERRLA, conjunctivae clear ENT: Nares clear. Mucous membranes moist. TM pearly lo with dull light reflex bilaterally; no tragal tenderness. Oropharynx not erythematous without lesions. Tonsils not enlarged and without exudate, no drooling, no hoarseness, no trismus, uvula midline. NECK: Supple. No lymphadenopathy CHEST: Clear to auscultation, breath sounds equal. No wheezing, rhonchi, rales, or stridor. No respiratory distress, speaks in full sentences. HEART: Regular rate and rhythm. No murmur heard. SKIN: Warm, dry, no rash. NEURO: Alert and oriented x3. PSYCH: Normal mood and affect Course Course Emergency Course: Patient is aware of diagnosis, understands and agrees to treatment plan. Anticipatory guidance given. Patient agrees to follow-up as directed and is aware of reasons to seek care at the emergency department. Portions of this record may have been created with voice recognition software Level of Care: Express Care Visit Vital Signs Vital signs: Reviewed. MDM - URI/Sore Throat MDM Narrative Medical decision making narrative: Differential diagnosis considered: Hamm virus, strep pharyngitis, allergic rhinitis, upper respiratory tract infection, sinusitis, rhinosinusitis, nasopharyngitis. viral pharyngitis, otitis media, otitis externa, pneumonia, bronchitis, viral cough syndrome, viral syndrome, and influenza. Exam findings show no acute concerns or changes; patient is non-toxic appearing and is in no distress. Patient is appropriate for outpatient treatment and follow-up. Lab Data Attestation: I reviewed the patient's lab results. Critical Care Time Critical Care Time Critical Care Time: No Discharge Plan Discharge Clinical Impression: Pharyngitis Qual
[2021-11-20 11:37] VITALS: BP 124/74; PULSE 111; RESP 18; TEMP 37.5; O2SAT 100
== END 2021-11-20 12:20 | disposition home or self-care (01) ==
PROVIDERS: Emergency Provider Nurse Practitioner
DX: J02.9 Acute pharyngitis, unspecified (principal); Z20.822 Contact with and (suspected) exposure to COVID-19
CPT/HCPCS: 87081; 87426; 87880; 99213; C9803; G0463